=== PATIENT | female | born 1995 | race Caucasian/White ===

== ENCOUNTER 2023-02-27 10:50 | Outpatient (REF) | payer OTHER, SELFPAY ==
[2023-02-27 11:41] LABS: SARS-CoV-2 Ag NEGATIVE (NEGATIVE)
[2023-02-27 15:29] LABS: SARS-CoV-2 NAA NOT DETECTED (NOT DETECTE)
== END 2023-02-27 10:51 | disposition home or self-care (01) ==
LOC: LAB 10:50
PROVIDERS: PCP Family Medicine; Visit Provider Family Medicine
DX: Z20.822 Contact with and (suspected) exposure to COVID-19 (principal); R05.1 Acute cough
CPT/HCPCS: 87635; 87811

== ENCOUNTER 2023-03-19 12:23 | Outpatient (OUT) | payer OTHER, SELFPAY ==
[2023-03-19 12:54] LABS: Basophils Absolute Auto 0.1 10^3/uL (0.0-0.1); Basophils Percent Auto 0.4 % (0.2-2.0); Eosinophils Absolute Auto 0.3 10^3/uL (0.0-0.7); Eosinophils Percent Auto 2.4 % (0.9-7.0); Hematocrit 37.8 % (36.0-48.0); Hemoglobin 12.3 g/dL (12.0-16.0); Immature Granulocytes Abs Auto 0.03 10^3/uL (0.00-0.03); Immature Granulocytes Pct Auto 0.3 % (0.0-0.5); Lymphocytes Absolute Auto 3.1 10^3/uL (1.2-3.8); Lymphocytes Percent Auto 25.7 % (20.5-60.0); Mean Corpuscular HGB Conc 32.5 g/dL (29.9-35.2); Mean Corpuscular Hemoglobin 26.7 pg (26.7-34.0); Mean Corpuscular Volume 82.2 fL (81.0-99.0); Mean Platelet Volume 9.9 fL (9.5-13.5); Monocytes Absolute Auto 0.6 10^3/uL (0.3-0.8); Monocytes Percent Auto 5.3 % (1.7-12.0); Neutrophils Absolute Auto 7.9 10^3/uL (1.4-6.5); Neutrophils Percent Auto 65.9 % (43.0-75.0); Platelet Count 359 10^3/uL (150-450); Red Cell Distribution Width 14.3 % (11.0-15.0)
[2023-03-19 13:09] LABS: Estimated Average Glucose 117 mg/dL; Glycohemoglobin A1C 5.7 % (4.5-6.2)
[2023-03-19 14:04] LABS: Alanine Aminotransferase 21 U/L (14-59); Albumin Globulin Ratio 0.7; Albumin Level 3.1 g/dL (3.4-5.0); Alkaline Phosphatase 100 U/L (46-116); Anion Gap 13.1; Aspartate Amino Transferase 14 U/L (15-37); BUN Creatinine Ratio 15.9; Bilirubin Total 0.6 mg/dL (0.2-1.0); Calcium 8.8 mg/dL (8.5-10.1); Carbon Dioxide 28.2 mmol/L (21.0-32.0); Chloride 102 mmol/L (98-107); Cholesterol 157 mg/dL (<=200); Estimated GFR (African America >60 (>=60); Estimated GFR (Non-African Ame >60 (>=60); Free T3 2.37 pg/mL (2.18-3.98); Globulin 4.4 g/dL; Glucose 94 mg/dL (74-106); HDL Cholesterol 39 mg/dL (40-60); Potassium 4.3 mmol/L (3.5-5.1); Sodium 139 mmol/L (136-145); Thyroid Stimulating Hormone 0.131 uIU/mL (0.358-3.740); Total Protein 7.5 g/dL (6.4-8.2); Triglycerides 106 mg/dL (<=150); VLDL CHOLESTEROL 21.2 mg/dL
[2023-03-20 10:10] LABS: Insulin 20.7 uIU/mL (2.6-24.9)
== END 2023-03-19 12:24 | disposition home or self-care (01) ==
LOC: LAB 12:23
PROVIDERS: PCP Family Medicine; Visit Provider Family Medicine
DX: Z00.00 Encounter for general adult medical examination without abnormal findings (principal)
CPT/HCPCS: 36415; 80053; 80061; 82306; 83036; 83525; 83540; 84436; 84443; 84481; 85025

== ENCOUNTER 2023-07-29 09:49 | Outpatient (OUT) | payer OTHER, SELFPAY ==
--- OUTSIDE RECORDS SUMMARY | 2023-07-29 10:01 | XMS_ITS | CCD ---
Author Organization [facility] Care Team Providers Care Supervisor Farm Equipment Maintenance Name Role Phone BrownNik manrique R Unavailable Unavailable Nathaly Nik R Unavailable Unavailable Danny Nicholson~[phone] UNKNOWN Unavailable Unavailable DWAINE BLAND Surgeon Unavailable DWAINE BLAND Attending Unavailable DWAINE BLAND Admitting Unavailable [place] Procedure Practitioner Unavailab DANNY Khan Referring Unavailable DANNY NICHOLSON Primary Care Unavailable DR DANNY NICHOLSON Attending Unavailable BHARAT, DR HARRISON Consulting Unavailable DR DANNY NICHOLSON Primary Care Unavailable DR DANNY NICHOLSON Admitting Unavailable DWAINE BLAND Attending Unavailable Allergies Allergy Classification Reported Allergen(s) Allergy Type Date of Onset Reaction(s) Facility Penicillins (antibiotic) (2 sources) Penicillin; Translations: [PENICILLIN] Drug Allergy 10-24-2016 [facility] Repository (1 source) Amoxicillin Drug Allergy 08-31-2012 [facility] Repository (2 sources) Penicillins; Translations: [PENICILLINS] Drug allergy (disorder) 08-31-2012 [facility] Repository Problems Active Problems Problem Classification Problem Date Documented Da te Episodic/Chronic Unclassified (2 sources) CONTACT W/AND (SUSP) EXPOS COVID-19; Translations: [CONTACT W/AND (SUSP) EXPOS COVID-19] Onset: 04-06-2022 Unclassified (2 sources) New Patient; Translations: [New Patient] Onset: 02-18-2023 Viral infection (1 source) COVID-19; Translations: [COVID-19] Onset: 04-06-2022 Past or Other Problems Problem Classification Problem Date Documented Da te Episodic/Chronic Unclassified (1 source) CONTACT W/AND (SUSP) EXPOS COVID-19; Translations: [CONTACT W/AND (SUSP) EXPOS COVID-19] Onset: 04-01-2022 Results Test Name Value Interpretation Reference Range Facility Office Visiton 02-18-2023 Follow-up visit [id number] Андрей Ji 1995 F Date Provider Department Center 02/18/2023 454-DWAINE BLAND [facility] SURG Second Fl No family history on file Level of Service:61788 [place] OFFICE/OUTPATIENT ESTABLISHED LOW MDM 20-29 MIN Reason for Visit and Comments: New Patient [632] - Андрей Ji is here for a new patient appointment for possible hernia. Normal [facility] SYMPTOMATIC COVID-19 ANTIGEN on 04-01-2022 EUA Statement SEE BELOW Normal [facility] Comment on above: Result Comment: This test has not been FDA cleared or approved, but has been authorized by the FDA under an Emergency Use Authorization (EUA) for use by authorized laboratories certified under CLIA that meet the requirements to perform moderate or high complexity testing. This test has been authorized only for the detection of proteins from SARS-CoV-2, not for any other viruses or pathogens. The emergency use of this test is authorized for the duration of the declaration that circumstances exist justifying the authorization of emergency use of in vitro diagnostic tests for detection and/or diagnosis of Covid-19 under section 564(b)(1) of the Act, 21 U.S.C. 360bbb-3(b)(1), unless the declaration is terminated or authorization is revoked sooner. Performed By: #### C VDAGS #### [facility] [address] [place] [address] Dr. Syed Martinez SARS-CoV-2 (COVID-19) RNA ERIC+probe Ql (Unsp spec) Positive Critically abnormal NEGATIVE [facility] Comment on above: Performed By: #### C VDAGS #### [facility] [address] [address] [address] Syed Martinez Endoscopy Reporton Endoscopy Report MR#: [id number] [facility] Pt. Name: Андрей Ji Surgery Date: 11/20/2020 Room #: 0C Date of : 1995 PROCEDURE NOTE ATTENDING: Dwaine Bland M.D. Preoperative diagnosis: Ventral hernia; morbid obesity Postoperative diagnosis: Same as preop The operation was performed: Open ventral hernia repair Anesthesia: General anesthesia Indication: 25 years old morbid obesity white female developed ventral incisional hernia. Open ventral hernia repair was offered to the patient, informed consent was obtained. The risk of the surgery include but not limited to infection, bleeding, recurrence, bowel injury, chronic pain. Patient expressed understanding, agreed to proceed. Surgery: Patient was brought to the operating room, laid on the operating table in supine position. General anesthesia was initiated. Patient's abdomen was prepped and draped in usual sterile fashion. Timeout was completed. A transverse incision was made on the upper abdomen over the bulging of the hernia with #15 scalpel, 8 cm long. Subcutaneous tissues dissection with blunt dissection and the electrocautery to separate hernia sac from subcutaneous tissue. The dissection was continued down to the fascial defect. The hernia sac was opened, herniated small bowel was reduced back to the peritoneal cavity. The hernia sac was resected on the neck of the hernia. The fascial defect is 4 cm in diameter. The fascial defect was closed with 1-0 PDS interrupted evnspy-xr-kkiij suture in the transverse fashion. Without significant tension on the closure. The wound was irrigated with normal saline. Skin was closed by 3-0 Vicryl interrupted deep dermal sutures then skin nancy. Minimal intraoperative blood loss. Hernia sac was sent for pathology in formalin. Without complication. Instrument count and sponge count were correct. I was present during her surgery. Electronically Signed by: Dwaine Bland M.D. 11/22/2020 01:30 P Dwaine Bland M.D. Date Dict: 11/22/2020/12:45 P/Dwaine Bland M.D. Date Trans: 11/22/2020 12:45 P/ [id number] cc: Danny Nicholson M.D. [address] [facility] [id number] Normal [facility] POC GLUCOSE LABon 11-20-2020 Glucose [Mass/Vol] 97 mg/dL Normal 70-100 [facility] Comment on above: Performed By: #### [id number] #### [facility] [address] [place] [address], [facility] POC URINE PREGNANCYon 2020 Beta HCG ( test) Ql (U) CANCELED Normal NEGATIVE [facility] Comment on above: Result Comment: Perf ormed in PACU The released value NEGATIVE was canceled by ROXANE on 11/23/2020 07:06 Performed By: #### 8 [id number] #### [facility] [address] [place] [address], [facility] Beta HCG ( test) Ql (U) Negative Normal NEGATIVE [facility] Comment on above: Result Comment: Perf ormed in PACU Performed By: #### 8 [id number] #### [facility] [address] [place], [place] [id number] [place] [address] Coding Summary.on 08-28-2017 Coding Summary. CODING DATE: 08/28/2017 [facility] STATUS: Home (Routine DC) PAYOR: Janae APC DESCRIPTION 5671 Level 1 Pathology ADMIT DX: REASON FOR VISIT DX: D48.5 Neoplasm of uncertain behavior of skin FINAL DX: PRINCIPAL: D23.5 Other benign neoplasm of skin of trunk SECONDARY: PYMT PROC APC STAT DESCRIPTION DOCTOR NAME DATE NOTE: The code number assigned matches the documented diagnosis and / or procedure in the patient's chart. However, the narrative phrase printed from the coding software may appear abbreviated, or result in slightly different terminology. Coded By: Arabella Polo Date Saved: 08/28/2017 10:28 am Normal [facility] Encounters Encounter Date Encounter Type Care Provider Facility Start: 02-18-2023 End: 02-18-2023 ambulatory DWAINE BLAND [facility] Start: 04-01-2022 End: 04-01-[address] DANNY NICHOLSON Facility: Start: 11-20-2020 End: 11-21-2020 ambulatory DWAINE BLAND Facility:[facility] Start: 07-30-2017 End: 07-31-2017 Ambulatory Nik Andersen Facility:[facility] Procedures Date Procedure Procedure Detail Performing Clinician Start: 11-20-2020 ANESTH REPAIR OF HERNIA DWAINE BLAND Start: 11-20-2020 RPR VENTRAL RICARDO INIT REDUC DWAINE BLAND Payers Date Payer Category Payer Private Health Insurance [id number] 2017 Unknown 1995 Unknown [id number] 1995 Unknown [id number] 1960 Private Health Insurance [id number] Progress note 02-18-2023 Note Date & Type Note Facility 02-18-2023 Note Subjective Patient ID: Андрей Ji is a 27 y.o. female who presents for New Patient (Андрей Ji is here for a new patient appointment for possible hernia. ). HPI 28 years old morbid obesity white female is visiting for possible ventral hernia. She is tolerating to oral diet, normal bowel movement. Review of Systems Constitutional: Positive for chills. HENT: Positive for ear pain. Cardiovascular: Positive for chest pain. Gastrointestinal: Positive for abdominal pain. Genitourinary: Negative. Neurological: Negative. Hematological: Bruises/bleeds easily. Objective Visit Vitals BP 143/82 (BP Location: Left arm, Patient Position: Sitting, BP Cuff Size: Large adult) Pulse 71 Physical Exam Constitutional: Appearance: Normal appearance. She is obese. HENT: Head: Normocephalic and atraumatic. Cardiovascular: Rate and Rhythm: Normal rate. Pulmonary: Effort: Pulmonary effort is normal. Abdominal: General: Abdomen is flat. Palpations: Abdomen is soft. Hernia: A hernia is present. Musculoskeletal: Cervical back: Neck supple. Neurological: Mental Status: She is alert and oriented to person, place, and time. Assessment/Plan Morbid obesity, BMI more than 54 Incisional hernia Refer to bariatric surgery for weight loss No diagnosis found. No orders of the defined types were placed in this encounter. No results found for this or any previous visit (from the past 36 hour(s)). No follow-ups on file. [facility] Summary Purpose Family History No Family History Records FoundNo Family History Records FoundNo Family History Records FoundNo Family History Records Found Advance Directives No Advanced Directives Records FoundNo Advanced Directives Records FoundNo Advanced Directives Records FoundNo Advanced Directives Records Found Additional Source Comments INFORMATION SOURCE (unrecogn ized section and content) DATE CREATED AUTHOR 10/08/2017 [facility] DATE CREATED AUTHOR AUTHOR'S ORGANIZ ATION 11/27/2020 [facility] DATE CREATED AUTHOR AUTHOR'S ORGANIZ ATION 04/12/[address] [facility] DATE CREATED AUTHOR AUTHOR'S ORGANIZ ATION 03/01/2023 [facility] FOR RECORDS PERTAINING TO PATIENTS WHO ARE OR HAVE BEEN ENROLLED IN A CHEMICAL DEPENDENCY/SUBSTANCEABUSE PROGRAM, SOME INFORMATION MAY BE OMITTED. This clinical summary was aggregated from multiple sources. Caution should be exercised in using it in the provision of clinical care. This summary normalizes information from multiple sources, and as a consequence, information in this document may materially change the coding, format and clinical context of patient data. In addition, data may be omitted in some cases. CLINICAL DECISIONS SHOULD BE BASED ON THE PRIMARY CLINICAL RECORDS. [facility] [employer] provides no warranty or guarantee of the accuracy or completeness of information in this document.
[2023-07-29 10:04] LABS: Basophils Percent Auto 0.3 % (0.2-2.0); Eosinophils Absolute Auto 0.3 10^3/uL (0.0-0.7); Eosinophils Percent Auto 2.5 % (0.9-7.0); Hematocrit 34.5 % (36.0-48.0); Hemoglobin 10.7 g/dL (12.0-16.0); Immature Granulocytes Abs Auto 0.04 10^3/uL (0.00-0.03); Immature Granulocytes Pct Auto 0.3 % (0.0-0.5); Lymphocytes Absolute Auto 3.2 10^3/uL (1.2-3.8); Lymphocytes Percent Auto 26.8 % (20.5-60.0); Mean Corpuscular Hemoglobin 25.8 pg (26.7-34.0); Mean Corpuscular Volume 83.3 fL (81.0-99.0); Mean Platelet Volume 9.9 fL (9.5-13.5); Monocytes Absolute Auto 0.6 10^3/uL (0.3-0.8); Monocytes Percent Auto 4.8 % (1.7-12.0); Neutrophils Absolute Auto 7.7 10^3/uL (1.4-6.5); Neutrophils Percent Auto 65.3 % (43.0-75.0); Platelet Count 338 10^3/uL (150-450); Red Blood Count 4.14 10^6/uL (4.20-5.40); Red Cell Distribution Width 13.7 % (11.0-15.0); White Blood Count 11.8 10^3/uL (4.0-11.0)
[2023-07-29 10:20] LABS: Estimated Average Glucose 117 mg/dL; Glycohemoglobin A1C 5.7 % (4.5-6.2)
[2023-07-29 11:16] LABS: Alanine Aminotransferase 25 U/L (14-59); Albumin Globulin Ratio 0.6; Albumin Level 2.8 g/dL (3.4-5.0); Alkaline Phosphatase 88 U/L (46-116); Anion Gap 12.6; Aspartate Amino Transferase 18 U/L (15-37); BUN Creatinine Ratio 19.7; Bilirubin Total 0.5 mg/dL (0.2-1.0); Calcium 8.9 mg/dL (8.5-10.1); Carbon Dioxide 27.7 mmol/L (21.0-32.0); Chloride 104 mmol/L (98-107); Chol HDL Ratio 3.6; Cholesterol 116 mg/dL (<=200); Estimated GFR (African America >60 (>=60); Estimated GFR (Non-African Ame >60 (>=60); Free T3 4.04 pg/mL (2.18-3.98); Globulin 4.5 g/dL; Glucose 100 mg/dL (74-106); HDL Cholesterol 32 mg/dL (40-60); Potassium 4.3 mmol/L (3.5-5.1); Sodium 140 mmol/L (136-145); Thyroid Stimulating Hormone <0.007 uIU/mL (0.358-3.740); Total Protein 7.3 g/dL (6.4-8.2); Triglycerides 117 mg/dL (<=150); VLDL CHOLESTEROL 23.4 mg/dL
[2023-07-30 10:12] LABS: Insulin 33.5 uIU/mL (2.6-24.9)
== END 2023-07-29 09:50 | disposition home or self-care (01) ==
LOC: LAB 09:51
PROVIDERS: PCP Family Medicine; Visit Provider Family Medicine
DX: J45.909 Unspecified asthma, uncomplicated (principal); E06.3 Autoimmune thyroiditis; N93.8 Other specified abnormal uterine and vaginal bleeding; K83.1 Obstruction of bile duct; R73.09 Other abnormal glucose; D64.9 Anemia, unspecified; E55.9 Vitamin D deficiency, unspecified
CPT/HCPCS: 36415; 80053; 80061; 82306; 83036; 83525; 83540; 84436; 84443; 84481; 85025

== ENCOUNTER 2024-06-11 08:52 | Outpatient (OUT) | payer OTHER, SELFPAY ==
[2024-06-11 09:24] LABS: Basophils Absolute Auto 0.1 10^3/uL (0.0-0.1); Basophils Percent Auto 0.6 % (0.2-2.0); Eosinophils Absolute Auto 0.3 10^3/uL (0.0-0.7); Eosinophils Percent Auto 3.6 % (0.9-7.0); Hematocrit 39.3 % (36.0-48.0); Hemoglobin 12.1 g/dL (12.0-16.0); Immature Granulocytes Abs Auto 0.03 10^3/uL (0.00-0.03); Immature Granulocytes Pct Auto 0.3 % (0.0-0.5); Lymphocytes Absolute Auto 2.7 10^3/uL (1.2-3.8); Lymphocytes Percent Auto 28.4 % (20.5-60.0); Mean Corpuscular HGB Conc 30.8 g/dL (29.9-35.2); Mean Corpuscular Hemoglobin 24.2 pg (26.7-34.0); Mean Corpuscular Volume 78.8 fL (81.0-99.0); Mean Platelet Volume 9.9 fL (9.5-13.5); Monocytes Absolute Auto 0.5 10^3/uL (0.3-0.8); Monocytes Percent Auto 5.8 % (1.7-12.0); Neutrophils Absolute Auto 5.7 10^3/uL (1.4-6.5); Neutrophils Percent Auto 61.3 % (43.0-75.0); Platelet Count 388 10^3/uL (150-450); Red Blood Count 4.99 10^6/uL (4.20-5.40); Red Cell Distribution Width 15.3 % (11.0-15.0); White Blood Count 9.3 10^3/uL (4.0-11.0)
[2024-06-11 09:47] LABS: Free T3 2.72 pg/mL (2.18-3.98); Thyroid Stimulating Hormone 0.343 uIU/mL (0.358-3.740)
[2024-06-11 10:03] LABS: Free T4 1.14 ng/dL (0.76-1.46)
== END 2024-06-11 08:53 | disposition home or self-care (01) ==
PROVIDERS: PCP Family Medicine; Visit Provider Family Medicine
DX: E55.9 Vitamin D deficiency, unspecified (principal); E03.9 Hypothyroidism, unspecified; E61.1 Iron deficiency
CPT/HCPCS: 36415; 82306; 83540; 84436; 84439; 84443; 84481; 85025

== ENCOUNTER 2024-12-29 11:09 | Outpatient (OUT) | payer OTHER, SELFPAY ==
--- OUTSIDE RECORDS SUMMARY | 2024-06-13 04:42 | XMS_ITS ---
Author Organization [facility] [place] Address [address] [place] [address] Care Team Providers Care Blood Donor Unit Assistant Name Role Phone Juan Barraza Primary Care Provider [phone] REASON FOR VISIT Lab Results- Medications Medication SIG (Take, Route, Frequency, Duration) Notes Start Date End Date Status Cholecalciferol 1.25 MG (45053 UT) 1 capsule Orally once weekly for 90 days 06/15/2024 Active Pristiq 50 MG 1 tablet Orally Once a day for 30 day(s) 09/09/2022 Active predniSONE 20 MG 3 tablets Orally Onc e a day for 5 days 09/03/2023 Active Cholecalciferol 625 MCG (61395 UT) Take 1 capsule Orally once weekly for 90 days 06/15/2024 Active Levothyroxine Sodium 200 MCG 1 tablet in the morning on an empty stomach Orally Once a day with the 50mg tablet for 30 days Active Lisinopril 20 MG 1 tablet Orally Once a day for 90 days Active Metoprolol Tartrate 50 MG 1 tablet with food Orally Twice a day for 90 days Active levoFLOXacin 750 MG 1 tablet Orally Once a day for 10 day(s) 09/03/2023 Active Levothyroxine Sodium 50 MCG 1 tablet in the morning on an empty stomach Orally Once a day with 200mg tablet for 30 days 06/07/2024 Active Ferrous Sulfate 325 (65 Fe) MG 1 tablet Orally BID for 30 days 07/30/2023 Active Cleocin 300 MG 1 capsule Orally QID for 7 10/03/2023 Active Encounters Encounter Location Date Provider Diagnosis [address] [place] [address] 06/13/2024 Juan Barraza Plan Of Treatment Medication Medication Name Sig Start Date Stop Date Notes Cholecalciferol 1.25 MG (500 00 UT) 1 capsule Orally once weekly for 90 days 06/15/2024 Cholecalciferol 50 MCG (2000 UT) 1 table t Orally Once a day 07/30/2023 Cholecalciferol 625 MCG (250 00 UT) Take 1 capsule Orally once weekly for 90 days 06/15/2024 Progress Notes * Peggy JI MDOB: 4 (29 yo F)Acc No.[id number]:06/13/2024 Patient: Henry BARONEPeggy :1995 A ge:29 Y S ex:Female Address:[address] [place] [id number] * Refills Stop Cholecalciferol Tablet, 50 MCG (2000 UT), Orally, 1 tablet, Once a day Start Cholecalciferol Capsule, 625 MCG (47488 UT), Orally, 12, Take 1 capsule, once weekly, 90 days, Refills=3 Start Cholecalciferol Capsule, 1.25 MG (92937 UT), Orally, 12, 1 capsule, once weekly, 90 days, Refills=3 Subjective: * Chief Complaints: * L ab Results- * Medical History: * Surgical History: * Hospitalization/Major Diagno stic Procedure: * Medications: T akingCleocin(Clindamycin HCl) 300 MG Capsule 1 capsule Orally QID Ferrous Sulfate 325 (65 Fe) MG Tablet 1 tablet Orally BID levoFLOXacin 750 MG Tablet 1 tablet Orally Once a day Levothyroxine Sodium 50 MCG Tablet 1 tablet in the morning on an empty stomach Orally Once a day with 200mg tablet Levothyroxine Sodium 200 MCG Tablet 1 tablet in the morning on an empty stomach Orally Once a day with the 50mg tablet Lisinopril 20 MG Tablet 1 tablet Orally Once a day Metoprolol Tartrate 50 MG Tablet 1 tablet with food Orally Twice a day predniSONE 20 MG Tablet 3 tablets Orally Once a day Pristiq(Desvenlafaxine Succinate ER) 50 MG Tablet Extended Release 24 Hour 1 tablet Orally Once a day Taking Cleocin(Clindamycin HCl) 300 MG Capsule 1 capsule Orally QID Taking Ferrous Sulfate 325 (65 Fe) MG Tablet 1 tablet Orally BID Taking levoFLOXacin 750 MG Tablet 1 tablet Orally Once a day Taking Levothyroxine Sodium 50 MCG Tablet 1 tablet in the morning on an empty stomach Orally Once a day with 200mg tablet Taking Levothyroxine Sodium 200 MCG Tablet 1 tablet in the morning on an empty stomach Orally Once a day with the 50mg tablet Taking Lisinopril 20 MG Tablet 1 tablet Orally Once a day Taking Metoprolol Tartrate 50 MG Tablet 1 tablet with food Orally Twice a day Taking predniSONE 20 MG Tablet 3 tablets Orally Once a day Taking Pristiq(Desvenlafaxine Succinate ER) 50 MG Tablet Extended Release 24 Hour 1 tablet Orally Once a day DiscontinuedCholecalciferol 50 MCG (1999 UT) Tablet 1 tablet Orally Once a day Medication List reviewed and reconciled with the patientDiscontinued Cholecalciferol 50 MCG (1999 UT) Tablet 1 tablet Orally Once a day Medication List reviewed and reconciled with the patient Objective: * Vitals: * Physical Examination: Assessment: Plan: * Treatment: * Procedure Codes: * true * Date: Generated for Arlin castellon/Lurdes/Cleve on: 0 12/29/2024 11:12 AM EDT
--- OUTSIDE RECORDS SUMMARY | 2024-08-24 06:23 | XMS_ITS ---
Author Organization [facility] [place] Address [address] [place] [address] Care Team Providers Care Circuit Breaker Assembler Name Role Phone Juan Barraza Primary Care Provider [phone] REASON FOR VISIT yearly appointment Encounters Encounter Location Date Provider Diagnosis [facility] [address] [place] [address] 08/24/2024 Juan Barraza Plan Of Treatment No Information Progress Notes * Peggy JI MDOB: 4 (29 yo F)Acc No.[id number]:08/24/2024 Patient: Henry NICHOLASDeionPeggy :1995 A ge:29 Y S ex:Female Address:[address] [place] [address] [address], [place] [address] * true * Date: Generated for Arlin castellon/Lurdes/eTransmitting on: 0 12/29/2024 11:12 AM EDT
--- OUTSIDE RECORDS SUMMARY | 2024-11-25 07:00 | XMS_ITS ---
Author Organization The [facility] in [place] Address [address] [place] [address] Care Team Providers Care Comic Writer Name Role Phone ChristiJuan Primary Care Provider [phone] Allergies Allergen (clinical drug ingredient) Drug/Non Drug Allergy documented on EMR Reaction Allergy Type Onset Date Status amoxicillin Amoxicillin hives Drug Allergy Act thelma REASON FOR VISIT annual- wellness- med refills Medications Medication SIG (Take, Route, Frequency, Duration) Notes Start Date End Date Status Levothyroxine Sodium 50 MCG 1 tablet in the morning on an empty stomach Orally Once a day with 200mg tablet for 90 days 06/07/2024 Active Levothyroxine Sodium 200 MCG 1 tablet in the morning on an empty stomach Orally Once a day with the 50mg tablet for 90 days Active Ferrous Sulfate 325 (65 Fe) MG 1 tablet Orally BID for 30 days 07/30/2023 Active Pristiq 50 MG 1 tablet Orally Once a day for 30 days 11/25/2024 Active Triamcinolone Acetonide 0.1 % 1 application Externally bid 11/25/2024 Active Cholecalciferol 1.25 MG (86485 UT) 1 capsule Orally once weekly for 90 days 06/15/2024 Active Pristiq 50 MG 1 tablet Orally Once a day for 30 day(s) 09/09/2022 Active Metoprolol Tartrate 50 MG TAKE 1 TABLET BY MOUTH TWICE DAILY WITH FOOD for 90 Active Lisinopril 20 MG TAKE 1 TABLET BY ALEXANDRA TH ONCE DAILY for 90 Active Social History Tobacco Use: Social History Observation Description Date Details (start date - stop date) Never Smoker NA - NA Tobacco Use/Smoking Question Answer Notes Patient is a nonsmoker AUDIT-C (Standard) Question Answer Notes Did you have a drink contain ing alcohol in the past year? Yes How often did you have a dri nk containing alcohol in the past year? Monthly or less (1 point) How many drinks did you have on a typical day when you were drinking in the past year? 5 or 6 drinks (2 points) How often did you have six o r more drinks on one occasion in the past year? Less than monthly (1 point) Points 4 Interpretation Positive Vital Signs Weight 411.2 lbs 11/25/2024 Height 69 in 11/25/2024 Blood pressure systolic 124 mm Hg 11/26/19 25 Blood pressure diastolic 80 mm Hg 025 BMI 60.72 kg/m2 11/25/2024 Encounters Encounter Location Date Provider Diagnosis [facility] [address] [place] [address] 11/25/2024 Juan Barraza Well adult Z00.0 0 Assessments Encounter Date Diagnosis (ICD Code) Assessment Notes Treatment Notes Treatment Clinical Notes Section Notes 11/25/2024 Well adult (ICD-10 - Z00.00) Plan Of Treatment Medication Medication Name Sig Start Date Stop Date Notes Pristiq 50 MG 1 tablet Orally Once a day for 30 days 11/25/2024 Triamcinolone Acetonide 0.1 % 1 application Externally bid 11/25/2024 Pending Test Test Name Order Date HEMOGLOBIN A1C (GLYCO) 11/25/2024 IRON, TOTAL 11/25/2024 LIPID PANEL (CHOL/TRIG/HDL/LDL) 11/26/19 25 Insulin Level 11/25/2024 THYROID PANEL (T4/TSH/FREE T3) 5 MM screening mammo BI 11/25/2024 CMP (COMP MET CABEZAS) w/eGFR CKD-EPI 2024 CBC WITH DIFF 11/25/2024 Progress Notes * Peggy JI MDOB: [birth year] (29 yo F)Acc No.[id number]:11/25/2024 Progress Note Patient: Peggy QUIROZ Provider: Judi Barraza (TTC)MD :1995 A ge:29 Y S ex:Female Date:11/25/2024 Address:[address] [place], [place] [address]DAY[place] [id number] Check In:10:49 AM ESTCheck O ut:12:00 PM EST Subjective: * Chief Complaints: * A nnual- wellness- med refills * HPI: D epression Screening: PHQ-2 (2015 Edition) L ittle interest or pleasure in doing things??Several days F eeling down, depressed, or hopeless? M ore than half the days T otal Score 3 wel alt anxiety acting up - off pristic disussHTN - stabdl needs fdollow up on labs for thryrod. D epression Screening: PHQ-9 L ittle interest or pleasure in doing things?Several days F eeling down, depressed, or hopeless M ore than half the days T rouble falling or staying asleep, or sleeping too much N early every day F eeling tired or having little energy N early every day P oor appetite or overeating S everal days F eeling bad about yourself or that you are a failure, or have let yourself or your family down S everal days T rouble concentrating on things, such as reading the newspaper or watching television S everal days M oving or speaking so slowly that other people could have noticed; or the opposite, being so fidgety or restless that you have been moving around a lot more than usual N ot at all T houghts that you would be better off or of hurting yourself in some way N ot at all T otal Score 1 2 I nterpretation M oderate Depression * ROS: E ENT: hearing changes d enies. v isual changes d enies.?non-healing mouth sores d enies. s wollen glands or neck lumps d enies. h oarseness d enies. s ore throat d enies. d ifficulty swallowing d enies. n ose bleeds d enies. n abdi congestion d enies. e ar ache d enies. e ar discharge?denies. r inging in ears d enies. l ight sensitivity d enies. e ye pain d enies. b lurring d enies. e ye irritation d enies. d ouble vision d enies.?vision loss d enies. G eneral/Constitutional: Sweats: D enies. F atigue d enies. S leep problems d enies. A norexia d enies. M alaise d enies. W eight loss d enies.?Fatigue or Weakness d enies. F ever or Chills d enies. C ardiovascular: Shortness of Breath w/lying flat d enies. L ightheadedness/dizziness d enies. C hest tightness/ heavy pressure d enies. S welling of legs, ankles, or feet d enies. W aking up with shortness of breath d enies. C hest pain denies. P alpitations d enies. W eight gain d enies. R espiratory: Chronic or frequent cough d enies. C oughing up blood?denies. D ifficulty breathing d enies. P roductive cough d enies. S noring?denies. S hortness of breath that awakens from sleep (PND) d enies. C hest pain d enies. S putum production d enies. W heezing d enies. M usculoskeletal: Joint pain d enies. J oint Fluid d enies. B ack pain d enies. K nee pain d enies. N rosie pain d enies. J oint Stiffness d enies. M uscle cramps d enies. W eakness of muscles d enies. A rthritis d enies. M uscle aches d enies. P ain in shoulder(s) d enies. S wollen joints d enies. * Active Problem List R10.9 Abdominal pain Modified On:09/04/2022/U Status:confirmed J45.909 Asthma Modified On:07/29/2023/U Status:confirmed E03.9 Hypothyroidism Modified On:07/30/2023/U Status:confirmed E66.9 Obesity Modified On:09/04/2022/U Status:confirmed I10 Essential hypertensi on Modified On:09/04/2022/U Status:confirmed G47.00 Insomnia Modified On:09/04/2022/U Status:confirmed L30.9 Eczema Modified On:09/04/2022 Status:confirmed J01.90 Acute sinusitis Modified On:09/04/2022 Status:confirmed R60.0 Edema leg Modified On:09/04/2022 Status:confirmed Z00.00 Well adult Modified On:09/09/2022 Status:confirmed R50.9 Fever Modified On:09/04/2022 Status:confirmed H92.01 Ear pain, right Modified On:09/04/2022 Status:confirmed R55 Near syncope Modified On:09/04/2022 Status:confirmed E04.9 Goiter Modified On:09/04/2022 Status:confirmed N92.1 Menometrorrhagia Modified On:09/04/2022 Status:confirmed M67.40 Ganglion cyst Modified On:09/04/2022 Status:confirmed E06.3 Leoncio's thyroidi tis Modified On:09/04/2022 Status:confirmed K83.1 Bile duct obstructio n Modified On:09/04/2022 Status:confirmed U07.1 COVID-19 virus infec tion Modified On:09/04/2022 Status:confirmed M54.50 Low back pain, unspe cified Modified On:09/04/2022 Status:confirmed R05.9 Cough, unspecified Modified On:09/04/2022 Status:confirmed R05.8 Other cough Modified On:09/04/2022 Status:confirmed N93.8 Dysfunctional uterin e bleeding Modified On:07/29/2023 Status:confirmed E55.9 Vitamin D deficiency , unspecified Modified On:07/30/2023 Status:confirmed E61.1 Iron deficiency Modified On:07/30/2023 Status:confirmed * Medical History: * Surgical History: C holecystectomy ERCP Unbilical hernia Dr. Dino coe Hepaticojejunostomy [place] Teeth * Hospitalization/Major Diagno stic Procedure: D enies Past Hospitalization * Family History: F ather: alive, diagnosed with Unspecified essential hypertension. M other: alive, diagnosed with Diabetes mellitus without mention of complication, type II or unspecified type, not stated as uncontrolled, Unspecified essential hypertension. B rother(s): alive. S on(s): alive, type 1 diabetes. 1 brother(s) . 1 son(s) , 1 daughter(s) . . * Social History: T obacco Use: T obacco Use/Smoking P atient is a n onsmoker D rug/Alcohol: A JERILYN-C (Standard) D id you have a drink containing alcohol in the past year? Y es H ow often did you have a drink containing alcohol in the past year? M onthly or less (1 point) H ow many drinks did you have on a typical day when you were drinking in the past year? 5 or 6 drinks (2 points) H ow often did you have six or more drinks on one occasion in the past year? L ess than monthly (1 point) P oints 4 I nterpretation P ositive * Medications: T akingCholecalciferol 1.25 MG (93284 UT) Capsule 1 capsule Orally once weekly Ferrous Sulfate 325 (65 Fe) MG Tablet 1 tablet Orally BID Levothyroxine Sodium 200 MCG Tablet 1 tablet in the morning on an empty stomach Orally Once a day with the 50mg tablet Levothyroxine Sodium 50 MCG Tablet 1 tablet in the morning on an empty stomach Orally Once a day with 200mg tablet Lisinopril 20 MG Tablet TAKE 1 TABLET BY MOUTH ONCE DAILY Metoprolol Tartrate 50 MG Tablet TAKE 1 TABLET BY MOUTH TWICE DAILY WITH FOOD Pristiq(Desvenlafaxine Succinate ER) 50 MG Tablet Extended Release 24 Hour 1 tablet Orally Once a day Taking Cholecalciferol 1.25 MG (70696 UT) Capsule 1 capsule Orally once weekly Taking Ferrous Sulfate 325 (65 Fe) MG Tablet 1 tablet Orally BID Taking Levothyroxine Sodium 200 MCG Tablet 1 tablet in the morning on an empty stomach Orally Once a day with the 50mg tablet Taking Levothyroxine Sodium 50 MCG Tablet 1 tablet in the morning on an empty stomach Orally Once a day with 200mg tablet Taking Lisinopril 20 MG Tablet TAKE 1 TABLET BY MOUTH ONCE DAILY Taking Metoprolol Tartrate 50 MG Tablet TAKE 1 TABLET BY MOUTH TWICE DAILY WITH FOOD Taking Pristiq(Desvenlafaxine Succinate ER) 50 MG Tablet Extended Release 24 Hour 1 tablet Orally Once a day DiscontinuedCholecalciferol 625 MCG (69860 UT) Capsule Take 1 capsule Orally once weekly Cleocin(Clindamycin HCl) 300 MG Capsule 1 capsule Orally QID levoFLOXacin 750 MG Tablet 1 tablet Orally Once a day predniSONE 20 MG Tablet 3 tablets Orally Once a day Medication List reviewed and reconciled with the patientDiscontinued Cholecalciferol 625 MCG (56330 UT) Capsule Take 1 capsule Orally once weekly Discontinued Cleocin(Clindamycin HCl) 300 MG Capsule 1 capsule Orally QID Discontinued levoFLOXacin 750 MG Tablet 1 tablet Orally Once a day Discontinued predniSONE 20 MG Tablet 3 tablets Orally Once a day Medication List reviewed and reconciled with the patient * Allergies: A moxicillin: cas[Allergies Verified] Objective: * Vitals: W t:411.2lbs, Ht: 69 in, BP:124/80mm Hg, BMI:60.72Index, Ht-cm: 175.26 cm, Wt-k.52 kg. * Examination: P hysical Exam: GENERAL: w ell developed, well nourished, in no acute distress. HEAD: n ormocephalic/atraumatic. EYES: p upils equal, round and reactive to light, conjunctivae and sclerae normal. EARS: n o deformity or lesion of external ear, canals and TM appear normal bilaterally, TM's intact, not inflamed with normal light reflex, hearing grossly normal to conversational speech. NOSE: n o deformity, discharge, inflammation, or lesions.? MOUTH: m ucous membranes moist, normal oropharynx and posterior pharynx without lesions or exudates, tongue normal, dentition normal. NECK: n rosie supple, no masses or palpable cervical nodes, trachea midline, thyroid without nodules, masses, tenderness, or enlargement. CHEST: n o chest wall deformity, no chest wall tenderness.? LUNGS: n ormal respiratory effort and clear to auscultation, no wheezes, rales, or rhonchi, good air exchange. CARDIO: r egular rate and rhythm, normal S1 and S2, nor murmur, rub, or gallop. PULSES: n ormal capillary refill. ABDOMEN: s oft, non-distended, non-tender, no masses. MUSCULOSKELETAL: n o deformity or scoliosis noted, normal range of motion, joints normal, no erythema, edema, effusion, or ecchymosis. EXTREMITY: n o clubbing, cyanosis, edema, or deformity with normal ROM in both upper and lower bilateral extremities. NEUROLOGIC: g rossly normal. SKIN: n o rashes, ulcerations, or suspicious lesions. LYMPH NODES: n o cervical adenopathy, nodes normal. MENTAL STATUS: a lert and oriented x3, normal mood and affect. Assessment: * Assessment: 1. W ell adult - Z00.00 (Primary) Plan: * Treatment: * Procedure Codes: * Preventive Medicine: Screenings/Counseling: B SC ACTION PLAN Above Normal BMI Follow-up D ietary management education, guidance, and counseling * * Sign off status: Completed Visit Status: C HK (Check Out) true * Provider: Judi Barraza (TTC)MD Date: 0 11/25/2024 Generated for Printi ng/Faxing/eTransmitting on: 0 12/29/2024 11:12 AM EDT History and Physical Notes * HPI (History of Present Illness) Category Sub-Category Detail Notes Category Not es Depression Screening PHQ-9 Little inte rest or pleasure in doing things: Several days Feeling down, depressed, or hopeless: Mo re than half the days Trouble falling or staying asleep, or sl eeping too much: Nearly every day Feeling tired or having little energy: N early every day Poor appetite or overeating: Several day s Feeling bad about yourself o r that you are a failure, or have let yourself or your family down: Several days Trouble concentrating on thi ngs, such as reading the newspaper or watching television: Several days Moving or speaking so slowly that other people could have noticed; or the opposite, being so fidgety or restless that you have been moving around a lot more than usual: Not at all Thoughts that you would be b milton off or of hurting yourself in some way: Not at all Total Score: 12 Interpretation: Moderate Depression Depression Screening PHQ-2 (2015 Edition) Little interest or pleasure in doing things?: Several days wel alt anxiety acting up - off pristic disussHTN - stabdl needs fdollow up on labs for thryrod Feeling down, depressed, or hopeless?: M ore than half the days Total Score: 3 Examination Category Sub-Category Detail Notes Category Not es Physical Exam GENERAL: well developed, well nourished, in no acute distress HEAD: normocephalic/atraum atic EYES: pupils equal, round and reactive to light, conjunctivae and sclerae normal EARS: no deformity or lesi on of external ear, canals and TM appear normal bilaterally, TM's intact, not inflamed with normal light reflex, hearing grossly normal to conversational speech NOSE: no deformity, discha rge, inflammation, or lesions MOUTH: mucous membranes ayaz st, normal oropharynx and posterior pharynx without lesions or exudates, tongue normal, dentition normal NECK: neck supple, no mass es or palpable cervical nodes, trachea midline, thyroid without nodules, masses, tenderness, or enlargement CHEST: no chest wall deform ity, no chest wall tenderness LUNGS: normal respiratory e ffort and clear to auscultation, no wheezes, rales, or rhonchi, good air exchange CARDIO: regular rate and rhy thm, normal S1 and S2, nor murmur, rub, or gallop PULSES: normal capillary ref ill ABDOMEN: soft, non-distended, non-tender, no masses RECTAL: MUSCULOSKELETAL: no deformity or scol iosis noted, normal range of motion, joints normal, no erythema, edema, effusion, or ecchymosis EXTREMITY: no clubbing, cyanosi s, edema, or deformity with normal ROM in both upper and lower bilateral extremities NEUROLOGIC: grossly normal SKIN: no rashes, ulceratio ns, or suspicious lesions LYMPH NODES: no cervical adenopat hy, nodes normal MENTAL STATUS: alert and oriented x 3, normal mood and affect
--- OUTSIDE RECORDS SUMMARY | 2024-12-03 04:38 | XMS_ITS ---
Author Organization [facility] in [place] Address [address] [place] [address] Care Team Providers Care Casting Supervisor Name Role Phone Juan Barraza Primary Care Provider [phone] REASON FOR VISIT Med refills Medications Medication SIG (Take, Route, Frequency, Duration) Notes Start Date End Date Status Metoprolol Tartrate 50 MG TAKE 1 TABLET BY MOUTH TWICE DAILY WITH FOOD for 90 Active Lisinopril 20 MG TAKE 1 TABLET BY ALEXANDRA TH ONCE DAILY for 90 Active Encounters Encounter Location Date Provider Diagnosis [facility] [address] [place] [address] 12/03/2024 Juan Barraza Plan Of Treatment Medication Medication Name Sig Start Date Stop Date Notes Metoprolol Tartrate 50 MG TAKE 1 TABLET BY MOUTH TWICE DAILY WITH FOOD for 90 Lisinopril 20 MG TAKE 1 TABLET BY ALEXANDRA TH ONCE DAILY for 90 Progress Notes * Peggy JI MDOB: 4 (29 yo F)Acc No.[id number]:12/03/2024 Patient: Henry BARONEPeggy :1995 A ge:29 Y S ex:Female Address:[address] [place] [address] [address], [place] [address] * Refills Refill Lisinopril Tablet, 20 MG, 90 Tablet, TAKE 1 TABLET BY MOUTH ONCE DAILY, 90, Refills=0 Refill Metoprolol Tartrate Tablet, 50 MG, 180 Tablet, TAKE 1 TABLET BY MOUTH TWICE DAILY WITH FOOD, 90, Refills=0 * true * Date: Generated for Arlin castellon/Lurdes/Maryitting on: 0 12/29/2024 11:12 AM EDT
--- OUTSIDE RECORDS SUMMARY | 2024-12-29 11:12 | XMS_ITS | Clinical Summary ---
Author Organization [facility] Address [address] [place] [address] Care Team Providers Care Knitting Inspector Name Role Phone Danny Barraza MD Primary Care Provider [phone] Allergies Active Allergy Reactions Criticality Noted Date Comments Penicillins Hives 11/19/2016 Medications levothyroxine (Synthroid, Unithroid) 300 mcg tablet 02/12/2023 Active DOCOSAHEXAENOIC ACID ORAL Take 1 tablet by mouth in the morning. 11/29/2018 Active norethindrone (Micronor) 0.35 mg tablet Take 0.35 mg by mouth in the morning. 09/16/2019 Active aspirin 81 mg EC tablet Take 81 mg by mouth in the morning. Active hydrOXYzine HCL (Atarax) 25 mg tablet Take 1 tablet by mouth if needed in the morning, at noon, in the evening, and at bedtime. 07/11/2022 Active Active Problems Problem Noted Date Diagnosed Date Chronic hypertension affecting 020 02/18/2023 Injury of bile duct 02/18/2018 02/18/2023 Hypertensive disorder 08/13/2017 02/18/2023 Hypothyroidism 11/13/2016 02/18/2023 Obstruction of gallbladder 11/13/201602/18 Immunizations Immunization Administration Dates Next Due DTP / HiB 1995,1994,1994 DTaP, Unspecified 07/13/1999,08/22/1995 Hep B, Adolescent or Pediatric 1994,1994,1994 HiB, unspecified 08/22/1995 IPV 07/13/1999 Influenza, injectable, quadr ivalent, preservative free 02/12/2019 MMR 06/01/2019,07/13/1999,08/22/1995 OPV 1994,1994,1994 Pfizer SARS-CoV-2 Vaccination 06/28/2021 Tdap 03/24/2019,03/30/2014 Social History Tobacco Use Types Packs/Day Years Used Date Smoking Tobacco: Never Smokeless Tobacco: Never Tobacco Cessation:Counseling Given: Not Answered Alcohol Use Standard Drinks/Week Comments Yes 0 (1 standard drink = 0.6 oz pur e alcohol) Social PHQ-2 Answer Date Recorded Patient Health Questionnaire-2 Score 1 02/18/2023 [place] Safety & Environment Answer Date Rec orded Fear of Current or Ex-Partner Not on file Emotionally Abused Not on file 06/12/2023 Physically Abused Not on file 06/12/2023 Sexually Abused Not on file 06/12/2023 Physically or Sexually Abused Not on file Comments Unknown Sex and Gender Information Value Date Recorded Sex Assigned at Female 02/18/2023 1:52 PM EDT Legal Sex Female 11:57 PM EDT Gender Identity Female 02/18/2023 1:52 PM EDT Sexual Orientation Heterosexual or Straight 01/21 1:52 PM EDT Last Filed Vital Signs Vital Sign Reading Time Taken Comments Blood Pressure 143/82 02/18/2023 1:34 PM EDT Pulse 71 02/18/2023 1:34 PM EDT Temperature 36.4 C (97.6 F) 12/12/2020 2:58 PM EDT Respiratory Rate - - Oxygen Saturation - - Inhaled Oxygen Concentration - - Weight 163 kg (360 lb) 02/18/2023 1:34 PM EDT Height 172.7 cm (5' 8 ) 02/18/2023 1:34 PM EDT Body Mass Index 54.74 02/18/2023 1:34 PM EDT Plan of Treatment Health Maintenance Due Date Last Done Comments Depression Screening 2006 Varicella Vaccines (1 of 2 - 13+ 2-dose series) 2007 Pap Smear 2015 Cervical Cancer Screening 02/22/2024 HPV/Cotest 02/22/2024 COVID-19 Vaccine ( season) 2024 06/28/2021, 10/13/2020, 09/10/2020 Influenza Vaccine (#1) 2024 02/12/2019 Adult Tetanus 03/24/2029 03/24/2019, 03/30/2014 Zoster Vaccines (1 of 2) 02/22/2044 HIB Vaccines Completed 08/22/1995, 05/1994, 1994, Additional history exists IPV Vaccines Completed 07/13/1999, 05/1994, 1994, Additional history exists HPV Vaccines Aged Out No longer eligi ble based on patient's age to complete this topic Meningococcal B Vaccine Aged Out No l onger eligible based on patient's age to complete this topic Meningococcal Vaccine Aged Out No ivone yohan eligible based on patient's age to complete this topic Pneumococcal Vaccine: Pediatrics (0 to 5 Years) and At-Risk Patients (6 to 64 Years) Aged Out No longer eligible based on patient's age to complete this topic Rotavirus Vaccines Aged Out No longer eligible based on patient's age to complete this topic Insurance [facility] Care Teams Knitting Inspector Relationship Specialty Start Date End Date Danny Barraza MD [address] [facility] [address] [address] PCP - General 02/18/23
--- OUTSIDE RECORDS SUMMARY | 2024-12-29 11:12 | XMS_ITS | Patient Health Record ---
Author Organization [facility] in [place] Address [address] [place] [address] Care Team Providers Care Director International Name Role Phone Juan Barraza Primary Care Provider [phone] Allergies Allergen (clinical drug ingredient) Drug/Non Drug Allergy documented on EMR Reaction Allergy Type Onset Date Status amoxicillin Amoxicillin hives Drug Allergy Act thelma Results Component Value Reference Range Notes FREE T4 Reviewed date:06/13/2024 08:43:51 AM Interpretation: Performing Lab: Notes/Report: [facility] , Free T4 1.14 0.76-1.46 ng/dL Performing Lab: see note ML - [facility] LB IRON Reviewed date:06/13/2024 08:43:51 AM Interpretation: Performing Lab: Notes/Report: [facility] , Iron 41.0 50.0-170.0 ug/dL Performing Lab: see note ML - [facility] LB VITAMIN D 25 [place] Reviewed date:06/13/2024 08:43:51 AM Interpretation: Performing Lab: Notes/Report: [facility] , Vitamin D 10.8 <20 ng/mL Vit D deficient 20-<30 ng/mL Vit D insufficient >100 ng/mL Potential Toxicity 30-100 ng/mL Vit D sufficient Performing Lab: see note ML - [facility] LB TSH Reviewed date:06/13/2024 08:43:51 AM Interpretation: Performing Lab: Notes/Report: [facility] , Thyroid Stimulating Hormone 0.343 0.358-3.740 u IU/mL Performing Lab: see note ML - The [facility] FREE T3 Reviewed date:06/13/2024 08:43:51 AM Interpretation: Performing Lab: Notes/Report: [facility] , Free T3 2.72 2.18-3.98 pg/mL Performing Lab: see note ML - [facility] LB CBC AUTO DIFF Reviewed date:06/13/2024 08:43:51 AM Interpretation: Performing Lab: Notes/Report: [facility] , White Blood Count 9.3 4.0-11.0 10 3/uL Red Blood Count 4.99 4.20-5.40 10 6/uL Hemoglobin 12.1 12.0-16.0 g/dL Hematocrit 39.3 36.0-48.0 % Mean Corpuscular Volume 78.8 81.0-99.0 fL Mean Corpuscular Hemoglobin 24.2 26.7-34.0 pg Mean Corpuscular HGB Conc 30.8 29.9-35.2 g/dL Red Cell Distribution Width 15.3 11.0-15.0 % Platelet Count 388 150-450 10 3/uL Mean Platelet Volume 9.9 9.5-13.5 fL Neutrophils Percent Auto 61.3 43.0-75.0 % Lymphocytes Percent Auto 28.4 20.5-60.0 % Monocytes Percent Auto 5.8 1.7-12.0 % Eosinophils Percent Auto 3.6 0.9-7.0 % Basophils Percent Auto 0.6 0.2-2.0 % Immature Granulocytes Pct Auto 0.3 0.0-0.5 % Neutrophils Absolute Auto 5.7 1.4-6.5 10 3/uL Lymphocytes Absolute Auto 2.7 1.2-3.8 10 3/uL Monocytes Absolute Auto 0.5 0.3-0.8 10 3/uL Eosinophils Absolute Auto 0.3 0.0-0.7 10 3/uL Basophils Absolute Auto 0.1 0.0-0.1 10 3/uL Immature Granulocytes Abs Auto 0.03 0.00-0.03 10 3/uL Performing Lab: see note ML - [facility] LB Reason For Referral No Information Medications Medication SIG (Take, Route, Frequency, Duration) Notes Start Date End Date Status Metoprolol Tartrate 50 MG TAKE 1 TABLET BY MOUTH TWICE DAILY WITH FOOD for 90 Active Levothyroxine Sodium 50 MCG 1 tablet in the morning on an empty stomach Orally Once a day with 200mg tablet for 90 days 06/07/2024 Active Pristiq 50 MG 1 tablet Orally Once a day for 30 days 11/25/2024 Active Lisinopril 20 MG TAKE 1 TABLET BY ALEXANDRA TH ONCE DAILY for 90 Active Levothyroxine Sodium 200 MCG 1 tablet in the morning on an empty stomach Orally Once a day with the 50mg tablet for 90 days Active Triamcinolone Acetonide 0.1 % 1 application Externally bid 11/25/2024 Active Ferrous Sulfate 325 (65 Fe) MG 1 tablet Orally BID for 30 days 07/30/2023 Active Cholecalciferol 1.25 MG (98948 UT) 1 capsule Orally once weekly for 90 days 06/15/2024 Active Pristiq 50 MG 1 tablet Orally Once a day for 30 day(s) 09/09/2022 Active Social History Tobacco Use: Social History Observation Description Date Details (start date - stop date) Never Smoker NA - NA Tobacco Use/Smoking Question Answer Notes Patient is a nonsmoker Alcohol Screen (Audit-C) Question Answer Notes Did you have a drink contain ing alcohol in the past year? Yes How often did you have 6 or more drinks on one occasion in the past year? Never (0 point) How many drinks did you have on a typical day when you were drinking in the past year? 5 or 6 drinks (2 points) How often did you have a dri nk containing alcohol in the past year? Less than monthly (1 point) Points 3 Interpretation Positive AUDIT-C (Standard) Question Answer Notes Did you [...] monthly (1 point) Points 4 Interpretation Positive Problems Problem Type SNOMED Code ICD Code Onset Dates Problem Status W/U Status Risk Notes Problem 38160359 Vitamin D deficiency, unspecified (E55.9) Active confirmed Problem 05140817 Iron deficiency (E61.1) Active confirmed Problem Abdominal pain (14771335) Abdominal pain (R10.9) Active confirmed Problem Asthma (544513636) Asthma (J45.909) Active conf irmed Problem Hypothyroidism (47786833) Hypothyroidism (E03.9) Active confirmed Problem Obesity (290994779) Obesity (E66.9) Active conf irmed Problem Essential hypertension (00091345) Essential hypertension (I10) Active confirmed Problem Insomnia (038815241) Insomnia (G47.00) Active confirmed Problem Eczema (76353087) Eczema (L30.9) Active confirm ed Problem Acute sinusitis (41172395) Acute sinusitis (J01.90) Active confirmed Problem Edema (720544369) Edema leg (R60.0) Active conf irmed Problem Well adult (758859520) Well adult (Z00.00) Active confirmed Problem Fever (995606343) Fever (R50.9) Active confirme d Problem Otalgia of right ear (finding) (7747564117) Ear pain, right (H92.01) Active confirmed Problem Near syncope (526775141) Near syncope (R55) Active confirmed Problem Goiter (2809388) Goiter (E04.9) Active confirme d Problem Menometrorrhagia (747391397) Menometrorrhagia (N92.1) Active confirmed Problem Ganglion cyst (82757516) Ganglion cyst (M67.40) Active confirmed Problem Leoncio's thyroiditis (91414392) 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) Active confirmed Problem Dysfunctional uterine bleeding (55290674478012) Dysfunctional uterine bleeding (N93.8) Active confirmed Problem Obstruction of bile duct (73115158) Bile duct obstruction (K83.1) Active confirmed Problem Disease caused by Severe acute respiratory syndrome coronavirus 2 (disorder) (004486696) COVID-19 virus infection (U07.1) Active confirmed Problem Low back pain (863997944) Low back pain, unspecified (M54.50) Active confirmed Problem Cough (finding) (00471932) Cough, unspecified (R05.9) Active confirmed Problem Cough (finding) (62939250) Other cough (R05.8) Active confirmed Vital Signs Blood pressure diastolic 80 mm Hg 11/25/2024 Height 69 in 11/25/2024 Blood pressure systolic 124 mm Hg 11/25/2024 Weight 411.2 lbs 11/25/2024 BMI 60.72 kg/m2 11/25/2024 Encounters Encounter Location Date Provider Diagnosis [facility] [address] [facility] [place] [address] 03/10/2024 Juan Barraza [facility] [address] [facility] [place] [address] 06/07/2024 Juan Barraza [facility] [address] [facility] [place] [address] 06/13/2024 Juan Barraza [facility] [address] [place] [address] 07/19/2024 Juan Barraza [facility] [address] [facility] [place] [address] 08/24/2024 Juan Barraza [facility] [address] [facility] [place] [address] 12/03/2024 Juan Barraza [facility] [address] [facility] [address] 11/25/2024 Juan Barraza Well adult Z00.0 0 Assessments Encounter Date Diagnosis (ICD Code) Assessment Notes Treatment Notes Treatment Clinical Notes Section Notes 11/25/2024 Well adult (ICD-10 - Z00.00) Plan Of Treatment Pending Test Test Name Order Date CMP (COMPLETE METABOLIC PANEL) 3 CMP (COMPLETE METABOLIC PANEL) 4 HEMOGLOBIN A1C (GLYCO) 07/29/2023 HEMOGLOBIN A1C (GLYCO) 09/09/2022 HEMOGLOBIN A1C (GLYCO) 11/25/2024 IRON, TOTAL 11/25/2024 IRON, TOTAL 09/09/2022 IRON, TOTAL 07/29/2023 LIPID PANEL (CHOL/TRIG/HDL/LDL) 07/29/19 24 LIPID PANEL (CHOL/TRIG/HDL/LDL) 09/10/19 23 LIPID PANEL (CHOL/TRIG/HDL/LDL) 11/26/19 25 CBC WITH DIFF 09/09/2022 CBC WITH DIFF 07/29/2023 VITAMIN D, 25 LEVEL (TOTAL) 07/29/2023 VITAMIN D, 25 LEVEL (TOTAL) 09/09/2022 T3 FREE, T4 FREE and TSH 07/29/2023 Insulin Level 11/25/2024 Insulin Level 09/09/2022 Insulin Level 07/29/2023 CBC AUTO DIFF 07/29/2023 INSULIN 07/30/2023 IRON 07/29/2023 THYROID PANEL (T4/TSH/FREE T3) 5 THYROID PANEL (T4/TSH/FREE T3) 4 THYROID PANEL (T4/TSH/FREE T3) 3 MM screening mammo BI 11/25/2024 Vitamin D 07/29/2023 CMP (COMP MET CABEZAS) w/eGFR CKD-EPI 2024 CBC WITH DIFF 11/25/2024 Insurance Providers Payer Name Payer Address Payer Phone Subscriber Number Group Number Insured Name Patient Relationship to Insured Coverage Start Date Coverage End Date [facility] [address] [place], [place] [id number] Eddie Ji Spouse - patient is the spouse of the insured 4 Medical (General) History Medical History History ICD Code Acute sinusitis J01.90 COVID-19 virus infection U07.1 Fever R50.9 Cough, unspecified R05.9 Ear pain, right H92.01 Other cough R05.8 Abdominal pain R10.9 Essential hypertension I10 Near syncope R55 Edema leg R60.0 Low back pain, unspecified M54.50 Hypothyroidism E03.9 Well adult Z00.00 Insomnia G47.00 Ganglion cyst M67.40 Bile duct obstruction K83.1 Eczema L30.9 Menometrorrhagia N92.1 Obesity E66.9 Leoncio's thyroiditis E06.3 Goiter E04.9 Asthma J45.909 Surgical History Surgery Date(Month/Year) D Lo Teeth Hepaticojejunostomy Unbilical hernia Dr. Dino coe ERCP Cholecystectomy
--- NOTE | 2024-12-29 11:13 | MM_ITS ---
Patient Name: АНДЕРЙ PUTNAM MR#: [id number] : 1995 Exam Date: 12/29/2024 Ordering Doctor: DR CHRISTY NICHOLSON . RADIOLOGY REPORT PROCEDURE: MM TOMOSYNTHESIS SCREENING BI COMPARISON: None. INDICATIONS: Screening Calculator Name NCI Breast Cancer Risk Assessment Tool 5 Year Breast Cancer Risk Not Applicable. Lifetime Breast Cancer Risk Not Applicable. Personal Breast Cancer No Personal Ovarian Cancer No Treatments None Family Cancers Grandmother-paternal with ovarian cancer at age ~35. LOCATION: [facility] BREAST COMPOSITION: There are scattered areas of fibroglandular density. FINDINGS: DIAGNOSTIC CATEGORY 1--NEGATIVE. RIGHT BREAST: No significant suspicious finding. LEFT BREAST: No significant suspicious finding. RECOMMENDATIONS: ROUTINE MAMMOGRAM AND CLINICAL EVALUATION IN 12 MONTHS. Dictated by: Shayne Singh DO on 12/30/2024 at 15:19 Approved by: Shayne Singh DO on 12/30/2024 at 15:20
--- OUTSIDE RECORDS SUMMARY | 2024-12-29 11:15 | XMS_ITS | CCD ---
Author Organization [facility] Care Team Providers Care Illustrator Set Name Role Phone Nik Andersen Unavailable Unavailable Nik Andersen Unavailable Unavailable Christy Nicholson~[id number] UNKNOWN Unavailable Unavailable KATHY BLAND Surgeon Unavailable KATHY BLAND Attending Unavailable KATHY BLAND Admitting Unavailable MD Procedure Practitioner Unavailab CHRISTY Khan Referring Unavailable CHRISTY NICHOLSON Primary Care Unavailable DR CHRISTY NICHOLSON Attending Unavailable BHARAT, DR HARRISON Consulting Unavailable DR CHRISTY NICHOLSON Primary Care Unavailable DR CHRISTY NICHOLSON Admitting Unavailable KATHY BLAND Attending Unavailable Allergies Allergy Classification Reported Allergen(s) Allergy Type Date of Onset Reaction(s) Facility Penicillins (antibiotic) (2 sources) Penicillin; Translations: [PENICILLIN] Drug Allergy 10-24-2016 [facility] Repository (2 sources) Amoxicillin Drug Allergy 08-31-2012 [facility] Repository (3 sources) Penicillins; Translations: [PENICILLINS] Drug allergy (disorder) 08-31-2012 [facility] Repository Medications Current Medications Medication Drug Class(es) Dates Sig (Normalized) Sig (Original) levothyroxine sodium 0.2 mg oral tablet (1 source) l-Thyroxine Start: 10-25-2023 take 200 ug by mouth once daily Levothyroxine Active 200 MCG PO Daily October 25, 2023 12:00am lisinopril 5 mg oral tablet (1 source) Angiotensin Converting Enzyme Inhibitor Start: 10-25-2023 take 5 mg by mouth once daily Lisinopril Active 5 MG PO Daily October 25, 2023 12:00am ondansetron 4 mg disintegrating oral tablet (1 source) Serotonin-3 Receptor Antagonist Start: 10-25-2023 take 4 mg by mouth every eight hours Ondansetron Active 4 MG PO Every 8 hours 12 4 October 25, 2023 12:00am Completed/Discontinued Medications Medication Drug Class(es) Dates Sig (Normalized) Sig (Original) acetaminophen 300 mg / codeine phosphate 30 mg oral tablet (1 source) Opioid Agonist Start: 10-25-2023 End: 10-25-2023 take 1 tablet by mouth every six hours Acetaminophen-Code ine Discontinued 1 TAB PO Every 6 hours October 25, 2023 12:00am October 25, 2023 1:00pm ibuprofen 600 mg oral tablet (1 source) Nonsteroidal Anti-inflammatory Drug Start: 10-25-2023 End: 10-25-2023 Ibuprofen Discontinued 600 MG PO every 6 to 8 hours October 25, 2023 12:00am October 25, 2023 1:00pm Problems Active Problems Problem Classification Problem Date [...] Range Facility Office Visiton 02-18-2023 Follow-up visit [id number] Peggy Ji 1995 F Date Provider Department Center 02/18/2023 Muriel-KATHY BLAND [facility] SURG Second Fl No family history on file Level of Service:29165 MD OFFICE/OUTPATIENT ESTABLISHED LOW MDM 20-29 MIN Reason for Visit and Comments: New Patient [632] - Peggy Ji is here for a new patient appointment for possible hernia. Normal [facility] SYMPTOMATIC COVID-19 ANTIGEN on 04-01-2022 EUA Statement SEE BELOW Normal The [facility] Comment on above: Result Comment: This test [...] sooner. Performed By: #### C VDAGS #### [facility] [address] [place] [address] Dr. Syed Martinez SARS-CoV-2 (COVID-19) RNA ERIC+probe Ql (Unsp spec) Positive Critically abnormal NEGATIVE [facility] Comment on above: Performed By: #### C VDAGS #### [facility] [address] [place] [address] Dr. Syed Martinez Endoscopy Reporton Endoscopy Report MR#: [id number] [facility] Pt. Name: Peggy Ji Surgery Date: 11/20/2020 Room #: 0C Date of : 1995 PROCEDURE NOTE ATTENDING: Kathy Bland M.D. Preoperative diagnosis: Ventral hernia; morbid [...] defect was closed with 1-0 PDS interrupted unkcoh-au-lkszj suture in the transverse fashion. Without significant tension on the closure. The wound was irrigated with normal saline. Skin was closed by 3-0 Vicryl interrupted deep dermal sutures then skin nancy. Minimal intraoperative blood loss. Hernia sac was sent for pathology in formalin. Without complication. Instrument count and sponge count were correct. I was present during her surgery. Electronically Signed by: Kathy Bland M.D. 11/22/2020 01:30 P Kathy Bland M.D. Date Dict: 11/22/2020/12:45 P/Kathy Bland M.D. Date Trans: 11/22/2020 12:45 P/ [id number] cc: Christy Nicholson M.D. [address], [facility] [address] Normal [facility] POC GLUCOSE LABon 11-20-2020 Glucose [Mass/Vol] 97 mg/dL Normal 70-100 [facility] Comment on above: Performed By: #### [id number] #### [facility] [address] [place] [address], [facility] POC URINE PREGNANCYon 2020 Beta HCG ( test) Ql (U) CANCELED Normal NEGATIVE [facility] Comment on above: Result Comment: Perf ormed in PACU The released value NEGATIVE was canceled by ROXANE on 11/23/2020 07:06 Performed By: #### [id number] #### [facility] [address] [place] [address], [facility] Beta HCG ( test) Ql (U) Negative Normal NEGATIVE [facility] Comment on above: Result Comment: Perf ormed in PACU Performed By: #### [id number] #### [facility] [address] [place], [place] [address] Coding Summary.on 08-28-2017 Coding Summary. CODING DATE: 08/28/2017 [facility] STATUS: Home (Routine DC) PAYOR: Janae [...] Polo Date Saved: 08/28/2017 10:28 am Normal [facility] Vital Signs Date Time Vital Sign Value Performing Clinician Faci lity 10-25-2023 12:59-0400 Body height 172.72 cm [facility] 10-25-2023 12:59-0400 Body mass index (BMI) [Ratio] 61.6 kg/m2 [facility] 10-25-2023 12:59-0400 Body temperature 98 [degF] [facility] 10-25-2023 12:59-0400 Body weight 183.76 kg [facility] 10-25-2023 12:59-0400 Heart rate 93 /min [facility] 10-25-2023 12:59-0400 Respiratory rate 18 /min [facility] 10-25-2023 12:59-0400 SaO2% (BldA) [Mass fraction] 98 % [facility] Encounters Encounter Date Encounter Type Care Provider Facility Start: 10-25-2023 End: 10-25-2023 ambulatory [facility] Work Phone: Start: 10-25-2023 End: 10-25-2023 Patient encounter procedure [facility] Work Phone: Start: 02-18-2023 End: 02-18-2023 ambulatory KATHY BLAND [facility] Start: 04-01-2022 End: 04-01-[address] CHRSITY NICHOLSON Facility: Start: 11-20-2020 End: 11-21-2020 ambulatory KATHY BLAND Facility:[facility] Start: 07-30-2017 End: 07-31-2017 Ambulatory Nik Andersen Facility:[facility] Procedures Date Procedure Procedure Detail Performing Clinician Start: 11-20-2020 ANESTH REPAIR OF HERNIA KATHY BLAND Start: 11-20-2020 RPR [facility] INIT REDUC KATHY BLAND Payers Date Payer Category Payer Private Health Insurance [id number] 2018 Unknown 1995 Unknown [id number] 1995 Unknown [id number] 1960 Private Health Insurance [id number] Unknown [place] [id number] Social History Date Type Detail Facility Start: 10-25-2023 Tobacco smoking stat RUSTIS Never smoked tobacco (finding) [facility] Start: 1995 Sex Assigned At Female F [facility] Progress note 02-18-2023 Note Date & Type Note Facility 02-18-2023 Note Subjective Patient ID: Peggy Ji is a 27 y.o. female who presents for New Patient (Peggy Ji is here for a new patient [...] past 36 hour(s)). No follow-ups on file. [facility] Evaluation note Note Date & Type Note Facility Evaluation note No assessment information [facility] Work Phone: Summary Purpose Family History No Family History Records FoundNo Family History Records FoundNo Family History Records FoundNo Family History Records Found Advance Directives Advance Directive Response Recorded Date/ Time Advance Directives No October 24 12:53pm Chief Complaint and Reason for Visit Chief Complaint nausea and vomit Additional Source Comments INFORMATION SOURCE (unrecogn ized section and content) DATE CREATED AUTHOR 10/08/2017 [facility] DATE CREATED AUTHOR AUTHOR'S ORGANIZ ATION 11/27/2020 [facility] DATE CREATED AUTHOR AUTHOR'S ORGANIZ ATION 04/12/2022 [facility] DATE CREATED AUTHOR AUTHOR'S ORGANIZ ATION 03/01/2023 [facility] Care Teams (unrecognized sec tion and content) Team Status: Active Member Role Status Dates Christy Nicholson MD Primary Care Provider Active Team Status: Inactive Member Role Status Dates Christy Nicholson MD Primary Care Provider Active Start: October 25, 2023 End: October 25, 2023 Golria Rosas APRN Attending Provider Active S tart: October 25, 2023 End: October 25, 2023 Goals (unrecognized section and content) Goals may be documented in a n alternate section FOR RECORDS PERTAINING TO PATIENTS WHO ARE [...] BE BASED ON THE PRIMARY CLINICAL RECORDS. [facility]. provides no warranty or guarantee of the accuracy or completeness of information in this document.
== END 2024-12-29 11:10 | disposition home or self-care (01) ==
LOC: MAMMO 11:10
PROVIDERS: PCP Family Medicine; Visit Provider Family Medicine
DX: Z00.00 Encounter for general adult medical examination without abnormal findings (principal); Z12.31 Encounter for screening mammogram for malignant neoplasm of breast; Z80.41 Family history of malignant neoplasm of ovary
CPT/HCPCS: 77063; 77067